=== PATIENT | female | born 1985 | race Caucasian/White ===

== ENCOUNTER → 2024-02-06 15:02 | Outpatient (CLI) | payer OTHER, SELFPAY ==
--- NOTE | 2024-02-06 15:04 | DI.US.S_ITS ---
PROCEDURE: US OB <= 14 WEEKS FETUS INDICATIONS: THREATENED SPONTANEOUS OUTSIDE/PRIOR DATING DATA: Last menstrual period (LMP): 12/03/2023 LMP-based estimated date of delivery (MELLO): 09/08/2024 First dating scan (date and location): 02/06/2024 Estimated date of delivery (MELLO) from first dating scan: 09/25/2024 TECHNIQUE: Real-time scanning was performed of the fetus and maternal pelvic organs, with image documentation. Endovaginal scanning was also performed to better visualize the fetus and maternal ovaries. COMPARISON: None. FINDINGS: Embryo: Intrauterine gestational sac is seen with mildly irregular contour. pole is seen with crown-rump length measuring 0.9 cm compatible with an estimated gestational age of 6 weeks 6 days. A perigestational sac hemorrhage is seen measuring 3.7 x 2.2 x 1.4 cm. Heart rate: No cardiac activity is seen. Maternal organs: Multiple uterine fibroids are seen, the largest of which measures up to 1.9 cm. Probable right ovarian corpus luteal cyst. IMPRESSION: 1. Findings diagnostic for early failure. Intrauterine gestational sac and pole are seen with crown-rump length of 9 mm and no cardiac activity. 2. Perigestational sac hemorrhage measures up to 3.7 cm. 3. Multiple uterine fibroids. Concordant preliminary findings were conveyed to Dr. Elias by the steam crane operator on 02/06/2024 at 3:40 PM. Approved by: Fred Huynh M.D. on 02/06/2024 at 16:38
[2024-02-06 17:05] LABS: Appearance Urine UA CLEAR; Bilirubin Urine UA NEGATIVE (NEGATIVE); Color Urine UA YELLOW; Glucose Urine UA NEGATIVE (Negative); Ketones Urine UA NEGATIVE (NEGATIVE); Leukocyte Esterase Urine UA NEGATIVE (NEGATIVE); Nitrite Urine UA NEGATIVE (Negative); Occult Blood Urine UA NEGATIVE (Negative); Protein Urine UA NEGATIVE (Negative); Specific Gravity Urine UA <=1.005 (1.000-1.035); Urobilinogen Urine UA 0.2 E.U./dL (0.2); pH Urine UA 5.5 (4.5-8.0)
[2024-02-06 17:12] LABS: Add Manual Diff / Slide Review NO; Basophils Absolute Auto 0 /uL (0-100); Basophils Percent Auto 0.7 % (0-2); Eosinophils Absolute Auto 100 /uL (0-450); Eosinophils Percent Auto 1.6 % (2-4); Hematocrit 36.4 % (36-46); Hemoglobin 12.2 g/dL (12.0-16.0); Lymphocytes Absolute Auto 2200 /uL (1100-4500); Lymphocytes Percent Auto 32.7 % (25-40); Mean Corpuscular HGB Conc 33.6 % (30-36); Mean Corpuscular Hemoglobin 31.1 PG (26-34); Mean Corpuscular Volume 92.6 fL (80-100); Monocytes Absolute Auto 400 /uL (0-900); Monocytes Percent Auto 6.4 % (3-14); Neutrophils Absolute Auto 3900 /uL (1500-7000); Neutrophils Percent Auto 58.6 % (50-75); Platelet Count 202 X10^3/uL (150-400); Red Blood Cell Count 3.93 X10^6/uL (4.0-5.2); White Blood Cell Count 6.7 X10^3/uL (4.5-11.0)
[2024-02-06 17:46] LABS: HCG Quantitative /Beta subunit 20647 mIU/mL
[2024-02-06 18:00] LABS: Hepatitis B Surface Antigen NEGATIVE s/c (NEGATIVE); Rubella Antibody IgG 43.7 IU/mL (>15)
[2024-02-06 18:22] LABS: HIV 1 & 2 Ab/Ag 4th Gen Combo NEGATIVE (NEGATIVE); Hep C Virus Ab w/Reflex Quant NEGATIVE s/c (NEGATIVE)
[2024-02-08 06:15] LABS: RPR Screen Non Reactive (Non Reactive)
[2024-02-08 09:13] LABS: Varicella IgG Antibody Reactive (Non Reactive)
== END ==
PROVIDERS: Referring Provider Student in an Organized Health Care Education/Training Program; Visit Provider Student in an Organized Health Care Education/Training Program
DX: O20.0 Threatened abortion (principal); D25.9 Leiomyoma of uterus, unspecified
CPT/HCPCS: 36415; 76801; 76817; 80055; 81003; 84702; 86787; 86803; 86850; 86900; 86901; 87086; 87389

== ENCOUNTER → 2024-02-20 15:00 | Outpatient (CLI) | payer OTHER, SELFPAY ==
[2024-02-20 16:11] LABS: Free T4, Direct Thyroxine 0.82 ng/dL (0.78-2.19)
[2024-02-20 16:13] LABS: HCG Quantitative /Beta subunit 710.97 mIU/mL
[2024-02-20 16:25] LABS: Thyroid Stimulating Hormone 2.82 uIU/mL (0.47-4.68)
== END ==
LOC: LAB 15:01
PROVIDERS: Obstetrics & Gynecology; PCP Student in an Organized Health Care Education/Training Program; Referring Provider Student in an Organized Health Care Education/Training Program; Visit Provider Student in an Organized Health Care Education/Training Program
DX: O03.9 Complete or unspecified spontaneous abortion without complication (principal); Z83.49 Family history of other endocrine, nutritional and metabolic diseases
CPT/HCPCS: 36415; 84439; 84443; 84702

== ENCOUNTER → 2024-03-10 13:24 | Outpatient (CLI) | payer OTHER, SELFPAY ==
[2024-03-10 16:00] LABS: HCG Quantitative /Beta subunit 54.65 mIU/mL
== END ==
PROVIDERS: PCP Student in an Organized Health Care Education/Training Program; Referring Provider Obstetrics & Gynecology; Visit Provider Obstetrics & Gynecology
DX: N91.2 Amenorrhea, unspecified (principal); Z87.59 Personal history of other complications of pregnancy, childbirth and the puerperium
CPT/HCPCS: 36415; 84702